=== PATIENT | male | born 1995 | race Caucasian/White ===

== ENCOUNTER 2017-09-21 08:51 | Emergency (ER) | payer OTHER ==
[2017-09-21 08:58] VITALS: BP 115/70; PULSE 86; RESP 16; O2SAT 97
[2017-09-21] MEDS ORDERED: DEXAMETHASONE 4 MG TAB PO ONE (09:06)
[2017-09-21] MEDS ORDERED: IBUPROFEN 200 MG TAB PO ONE (09:08)
[2017-09-21] MEDS ORDERED: ACETAMINOPHEN 500 MG TAB PO ONE (09:08)
--- NOTE | 2017-09-21 09:13 | EDPHY ---
H & P Stated Complaint: fever, ST - Personal History Current Tetanus/Diphtheria Vaccine: Unsure Current Tetanus Diphtheria and Acellular Pertussis (TDAP): Unsure - Medical/Surgical History Hx Asthma: No Hx Chronic Respiratory Disease: No Hx Diabetes: No Hx Cardiac Disease: No Hx Renal Disease: No Hx Cirrhosis: No Hx Alcoholism: No Hx HIV/AIDS: No Hx Splenectomy or Spleen Trauma: No Other PMH: L knee surgery, back surgery, - Social History Smoking Status: Never smoked Time Seen by Provider: 09/21/17 09:01 HPI/ROS: CHIEF COMPLAINT: Sore throat, fever HISTORY OF PRESENT ILLNESS: 22-year-old immunocompetent male, remote history of tonsillectomy, awoke with fever, sore throat, cervical adenopathy. No nuchal rigidity. No cough. No coryza. No rash. No antecedent symptoms. No influenza vaccination this season. No back or flank pain. No testicular pain. No urinary abnormality. No abdominal pain. No nuchal rigidity. REVIEW OF SYSTEMS: A ten point review of systems was performed and is negative with the exception of the items mentioned in the HPI PAST MEDICAL & SURGICAL HISTORY: Remote tonsillectomy history. SOCIAL HISTORY: [employer] student PHYSICAL EXAM (Prior to examination, patient consented to physical exam, hands were washed and my usual and customary physical exam procedures followed) 1) GENERAL: Well-developed, well-nourished, alert and oriented. Appears nontoxic. 2) HEAD: Normocephalic, atraumatic 3) HEENT: Pupils equal, round, reactive to light bilaterally. Sclera anicteric. Nasopharynx: No rhinorrhea., oropharynx: No trismus no drooling no hot potato voice. Posterior oropharynx is erythematous with white exudate. Uvula midline. Ears bilaterally with normal tympanic membranes. 4) NECK: Full range of motion, no meningeal signs. Positive adenopathy. 5) LUNGS: Clear auscultation bilaterally, no wheezes, no rhonchi, no retractions. 6) HEART: Regular rate and rhythm, no murmur, no heave, no gallop. 7) ABDOMEN: No guarding, no rebound, no focal tenderness, negative McBurney's, negative Peres's, negative Rovsing's, negative peritoneal sign, 8) MUSCULOSKELETAL: Moving all extremities, no focal areas of tenderness, no obvious trauma. No peripheral edema or discoloration. 9) BACK: No CVA tenderness, no midline vertebral tenderness, no fluctuance, no step-off, no obvious trauma, no visual or palpable abnormality. 10) SKIN: No rash, no petechiae. 11) Psychiatric: Patient is oriented X 3, there is no agitation. DIFFERENTIAL DIAGNOSIS: In no particular include but limited to meningitis, epiglottitis, strep pharyngitis, viral pharyngitis, peritonsillar abscess, deep space infection,, influenza (Zabrina Rdz) Constitutional: Initial Vital Signs Temperature (C) 37.4 C 09/21/17 08:56 Heart Rate 86 09/21/17 08:56 Respiratory Rate 16 09/21/17 08:56 Blood Pressure 115/70 09/21/17 08:56 O2 Sat (%) 97 09/21/17 08:56 O2 Delivery Mode Room Air Allergies/Adverse Reactions: No Known Allergies Allergy (Unverified 09/21/17 08:54) Home Medications: Medication Instructions Recorded Amoxicillin/Clavulanate Pot 875 mg PO BID #14 tab 09/21/17 [Augmentin 875 mg tab] Motrin (*) 09/21/17 methylPREDNISolone [Medrol Dose 4 mg PO DAILY #1 ea 09/21/17 [place]] Medical Decision Making ED Course/Re-evaluation: High clinical suspicion for strep pharyngitis given the patient's presenting signs and symptoms, sudden onset, lack of cough, lack of URI symptoms. Doubt epiglottitis. Doubt meningitis. Plan will be empiric treatment with Augmentin , steroids. Inquired about prior history of steroid adverse reaction or mental health history and he denies adverse reactions to steroids in the past. Usual and customary pharyngitis precautions instructions provided. He feels comfortable being discharged. Recommend avoiding public spaces. Care of patient under supervision of secondary supervising physician Dr Erickson. ( Zabrina Rdz) Other Provider: The patient was evaluated and managed by the Physician Wood Stainer. My co- signature indicates that I have reviewed this chart and I agree with the findings and plan of care as documented. I am the secondary supervising physician. (Елена Erickson) - Data Points Medications Given: Discontinued Medications Acetaminophen (Tylenol) 1,000 mg PO EDNOW ONE Stop: 09/21/17 09:09 Last Admin: 09/21/17 09:13 Dose: 1,000 mg Dexamethasone (Decadron) 4 mg PO EDNOW ONE Stop: 09/21/17 09:07 Last Admin: 09/21/17 09:13 Dose: 4 mg Ibuprofen (Motrin) 800 mg PO EDNOW ONE Stop: 09/21/17 09:09 Last Admin: 09/21/17 09:13 Dose: 800 mg Departure - Departure Disposition: Home, Routine, Self-Care Clinical Impression: Strep pharyngitis Condition: Good Instructions: Strep Throat (ED) Additional Instructions: Return to the ER immediately if you cannot swallow, have drooling, fevers, neck stiffness, cannot open your jaw, or any other symptoms that concern you. Adult Pain & Fever Control: We recommend Acetaminophen (Tylenol) and Ibuprofen (Motrin,Advil) for pain and fever control. When fever is high or pain severe, both drugs can be used at the same time, but at different intervals. Please note the time differences. Your dose is: Acetaminophen 1000mg every 4 to 6 hours Ibuprofen 800mg every 6 hours with food OR Note: do not take Acetaminophen with Hydrocodone (Vicodin, Lortab) or Oycodone (Percocet). These medications also contain Acetaminophen. No more than 3000mg of Acetaminophen should be taken in 24 hours (for an adult). Referrals: J Carlos Juan MD [Medical Doctor] - 2-3 days, call for appt. Stand Alone Forms: School Excuse Prescriptions: Amoxicillin/Clavulanate Pot [Augmentin 875 mg tab] 875 mg PO BID #14 tab methylPREDNISolone [Medrol Dose [place]] 4 mg PO DAILY #1 ea
[2017-09-21 09:34] VITALS: TEMP 101.7
== END 2017-09-21 09:35 | disposition home or self-care (01) ==
DX: J02.0 Streptococcal pharyngitis (principal)